=== PATIENT | male | born 1980 | race Caucasian/White ===

== ENCOUNTER 2016-10-09 21:26 | Emergency (ER) | payer MEDICAID ==
[2016-10-09 21:49] VITALS: BP 152/62
== END 2016-10-10 00:30 | disposition home or self-care (01) ==
LOC: ED 21:26
DX: S90.112A Contusion of left great toe without damage to nail, initial encounter (principal); W22.8XXA Striking against or struck by other objects, initial encounter; Y93.89 Activity, other specified; Y92.89 Other specified places as the place of occurrence of the external cause; Y99.8 Other external cause status
CPT/HCPCS: 90715

== ENCOUNTER 2016-11-10 21:28 | Emergency (ER) | payer MEDICAID ==
[2016-11-10 23:33] VITALS: BP 118/63
== END 2016-11-10 23:33 | disposition home or self-care (01) ==
LOC: ED 21:28
DX: L60.0 Ingrowing nail (principal); Z79.1 Long term (current) use of non-steroidal anti-inflammatories (NSAID); Z79.2 Long term (current) use of antibiotics
CPT/HCPCS: J2001

== ENCOUNTER 2017-08-02 17:37 | Emergency (ER) | payer MEDICAID ==
[~2017-08-02] VITALS: Ht 167.6 cm; Wt 71.7 kg
[2017-08-02 17:43] VITALS: Ht 167.6 cm; Wt 71.7 kg
[2017-08-02 19:52] VITALS: BP 123/81
== END 2017-08-02 19:52 | disposition home or self-care (01) ==
LOC: ED 17:37
DX: L60.0 Ingrowing nail (principal)
CPT/HCPCS: 90715; J0696; J1885; J2001

== ENCOUNTER 2017-08-05 12:50 | Emergency (ER) | payer MEDICAID ==
[~2017-08-05] VITALS: Ht 170.2 cm; Wt 70.3 kg
[2017-08-05 12:59] VITALS: Ht 170.2 cm; Wt 70.3 kg
[2017-08-05 13:53] VITALS: BP 107/72
== END 2017-08-05 13:53 | disposition home or self-care (01) ==
LOC: ED 12:50
DX: Z48.01 Encounter for change or removal of surgical wound dressing (principal)

== ENCOUNTER 2017-08-09 10:54 | Emergency (ER) | payer MEDICAID ==
[~2017-08-09] VITALS: Ht 170.2 cm; Wt 70.8 kg
[2017-08-09 11:00] VITALS: Ht 170.2 cm; Wt 70.8 kg
[2017-08-09 12:04] LABS: BASOPHIL % 0.3 % (0-2); PLATELET COUNT 176 x10^3mcL (130-400); RED CELL DISTRIBUTION WIDTH 12.5 % (11.5-14.5)
[2017-08-09 12:20] LABS: CALCIUM 8.6 mg/dL (8.5-10.1); CARBON DIOXIDE 27.6 mmol/L (21-32); CHLORIDE SERUM 105 mmol/L (98-107); CREATININE SERUM 0.9 mg/dL (0.7-1.3); GFR1 > 60 mL/min; GLUCOSE SERUM 83 mg/dL (74-106); POTASSIUM SERUM 3.9 mmol/L (3.5-5.1); SODIUM SERUM 142 mmol/L (136-145)
[2017-08-09 12:25] LABS: ALBUMIN 3.8 g/dL (3.4-5.0); ALKALINE PHOSPHATASE 81 U/L (46-116); ALT/SGPT 41 U/L (16-63); AST/SGOT 26 U/L (15-37); BILIRUBIN TOTAL 0.52 mg/dL (0.20-1.00); TOTAL PROTEIN, SERUM 7.8 g/dL (6.4-8.2)
[2017-08-09 13:21] VITALS: BP 122/80
== END 2017-08-09 13:21 | disposition home or self-care (01) ==
LOC: ED 10:54
PROVIDERS: Emergency Medicine
DX: M19.042 Primary osteoarthritis, left hand (principal); M19.041 Primary osteoarthritis, right hand; K52.9 Noninfective gastroenteritis and colitis, unspecified
CPT/HCPCS: 36415

== ENCOUNTER 2019-11-11 02:19 | Emergency (ER) | payer MEDICAID ==
[2019-11-11 02:33] VITALS: Ht 167.6 cm
[2019-11-11 04:02] LABS: microscopic required? NO
[2019-11-11 04:29] LABS: UA SPECIFIC GRAVITY >=1.030 (1.005-1.035); urine erythrocyte NEGATIVE (NEGATIVE)
[2019-11-11 05:16] LABS: CALCIUM 8.1 mg/dL (8.5-10.1); CARBON DIOXIDE 25.1 mmol/L (21-32); CHLORIDE SERUM 108 mmol/L (98-107); CREATININE SERUM 1.1 mg/dL (0.7-1.3); GFR1 > 60 mL/min; GLUCOSE SERUM 130 mg/dL (74-106); POTASSIUM SERUM 3.6 mmol/L (3.5-5.1); SODIUM SERUM 142 mmol/L (136-145)
[2019-11-11 05:24] LABS: BASOPHIL % 0.2 % (0-2); PLATELET COUNT 166 x10^3mcL (130-400); RED CELL DISTRIBUTION WIDTH 13.1 % (11.5-14.5)
[2019-11-11 06:45] VITALS: BP 104/63
== END 2019-11-11 06:45 | disposition home or self-care (01) ==
LOC: ED 02:19
PROVIDERS: Emergency Medicine
DX: N20.0 Calculus of kidney (principal); N50.3 Cyst of epididymis
CPT/HCPCS: J1885; J2270; J2405; Q0092